=== PATIENT | male | born 1955 | race Caucasian/White ===

== ENCOUNTER 2021-09-19 08:45 | Inpatient (IN) | payer OTHER ==
[~2021-09-19] VITALS: Ht 190.5 cm; Wt 66.0 kg
[~2021-09-19 08:45] MED LIST: ACET500 PO; DICLOFENAC SOD100 G1 TOP; DOXA1; FINA5 PO; Hydroxychloroq200 MG PO; LEVFLO500 PO; NAPR500; PROACE100 PO; ZYRTEC10 M2 PO; [UNRECOGNIZED DRUG - OTHER] PO
[2021-09-19] MEDS ORDERED: SYSTANE GEL10 GM (09:20)
--- NOTE | 2021-09-19 09:54 | NUR ---
History, Chart, Medications and Allergies reviewed before start of procedure. Lungs clear T/O to Auscultation. Patient confirms NPO status and agrees with scheduled surgery. Pre-Op teaching done. Pt verbalizes understanding. [place] DOES HAVE INTELLECTUAL DISABILITIES, BUT DOESN'T COMMUNICATED HIS NEEDS. PT DENIES PAIN ONCE POSITIONED WELL IN BED.
--- NOTE | 2021-09-19 11:23 | NUR ---
09/19/21 1123 Yash Soria SMALL RAISED ROUND SKIN NOTED MID POSTERIOR THIGH WITH MINOR REDNESS SMALL RED CLOSED BLISTER NOTED ON POSTERIOR ACHILLES, NO SIGNS OF INFECTION.
--- NOTE | 2021-09-19 19:11 | NUR ---
SHIFT SUMMARY PT STATUS POST FOR L YARI HIP. FOAM DRESSING IN PLACE AND CDI. PT PRESENTS WITH DEVELOPMENTAL DELAY BUT IS ABLE TO MAKE HIS NEEDS KNOWN. DENIES PAIN AT THIS TIME. VSS. WILL REPORT TO ELISHA RN.
--- NOTE | 2021-09-20 04:05 | NUR ---
SHIFT SUMMARY A/OX2. POD1 L HIP NAILING, FOAM DRESSING C/D/I, POLAR PACK IN PLACE. TOLERATING PO INTAKE, VOIDING WELL. PT REPORTS NO PAIN AT THIS TIME. WILL REPORT TO ONCOMING RN.
[2021-09-20 04:47] LABS: BASOPHILS ABSOLUTE AUTO 0.01 K/mm3 (0.00-0.23); BASOPHILS PERCENT AUTO 0 % (0-2); EOSINOPHILS ABSOLUTE AUTO 0.01 K/mm3 (0.00-0.68); EOSINOPHILS PERCENT AUTO 0 % (0-6); Hematocrit 34.3 % (37.0-53.0); Hemoglobin 11.6 g/dL (13.5-17.5); IMMATURE GRAN ABSOLUTE AUTO 0.02 K/mm3 (0.00-0.10); IMMATURE GRAN PERCENT AUTO 0 % (0-1); LYMPHOCYTES ABSOLUTE AUTO 0.66 K/mm3 (0.84-5.20); LYMPHOCYTES PERCENT AUTO 9 % (21-46); MONOCYTES ABSOLUTE AUTO 0.82 K/mm3 (0.16-1.47); MONOCYTES PERCENT AUTO 11 % (4-13); Mean Corpuscular HGB 28.5 pg (26.0-34.0); Mean Corpuscular HGB Conc 33.8 g/dL (31.5-36.5); Mean Corpuscular Volume 84 fL (80-100); Mean Platelet Volume 9.2 fL (9.1-12.4); NEUTROPHILS PERCENT AUTO 80 % (41-73); Platelet Count 176 K/mm3 (150-400); RDW Coefficient Variation 15.9 % (11.7-14.2); RDW Standard Deviation 48.9 fL (35.1-46.3); Red Blood Cell Count 4.07 M/mm3 (4.30-5.90); White Blood Cell Count 7.62 K/mm3 (4.00-11.30)
[2021-09-20 05:02] LABS: Anion Gap 6 mmol/L (6-16); Blood Urea Nitrogen 23 mg/dL (8-24); Bun/Creatinine Ratio 26.9 (12.0-20.0); CO2, Blood 25 mmol/L (21-32); Calcium, Blood 8.3 mg/dL (8.5-10.1); Chloride, Blood 107 mmol/L (98-108); Creatinine, Blood 0.86 mg/dL (0.60-1.20); Glomerular Filtration Rate >60 (60-); Glucose, Blood 123 mg/dL (70-99); Potassium, Blood 4.4 mmol/L (3.5-5.5); Sodium, Blood 138 mmol/L (136-145)
--- NOTE | 2021-09-20 16:50 | NUR ---
SHIFT SUMMARY PT A&OX2, FOLLOWS DIRECTIONS, ABLE TO MAKE NEEDS KNOWN, PLEASANT & COOPERATIVE WITH CARE. POD1 L YARI HIP, FOAM DRESSING CDI, WBAT, TEDS/SCDS/POLAR LENY ON. DENIES PAIN; TYLENOL AND TORADOL GIVEN. DENIES N&V, ZAHRA PO. AMB SBA/FWW/GB, TO BED/CHAIR/BSC. VOIDING WELL, ATTENDS ON(LEAKAGE). BM TODAY. WILL REPORT TO ONCOMING NOC RN.
--- NOTE | 2021-09-21 06:19 | NUR ---
SHIFT SUMMARY NO ACUTE CHANGES OVERNIGHT. PT REPORTS PAIN UPON TRANSFER TO BSC TO BED. PAIN MANAGED WITH TYLENOL AND TORADOL. DEVELOPMENTAL DELAYED BUT ANSWERS QUESTIONS APPROPRIATELY. L HIP WITH AQUACEL DRESSING REMAIN CDI. PT DENIES NUMBNESS AND TINGLING SENSATION. VSS. TOLERATING PO INTAKE. USE URINAL WHEN VOIDING. VOIDING WITHOUT DIFFICULTY. PT HAD A SMEAR OF BM. CALL LIGHT WITHIN REACH. WILL PROVIDE REPORT TO ONCOMING NURSE.
--- NOTE | 2021-09-21 15:47 | NUR ---
SHIFT SUMMARY PT A&OX2, VSS, PLEASANT & COOPERATIVE WITH CARE, USES CALL LIGHT APPROPRIATELY, ABLE TO MAKE NEEDS KNOWN. PAIN MANAGED WITH TYLENOL AND TORADOL. ZAHRA PO. AMB SBA/FWW/GB TO BSC/CHAIR/BED, PT RESPONDS WELL TO CUES AND PATIENCE HE TRANSFERS AT HIS OWN PACE. VOIDING WELL USES BSC/URINAL. BM LARGE TODAY. WILL REPORT TO NEXT RN.
--- NOTE | 2021-09-22 03:46 | NUR ---
SHIFT SUMMARY NO ACUTE CHANGES OVERNIGHT. PT REPORTS L HIP PAIN AFTER TRANSFERING TO BS BUT DENIES PAIN AT REST. PAIN MANAGED WITH TYLENOL, TORADOL AND NORCO. ALERT AND ORIENTEDX3. HX DEV'T DELAY. APPROPRIATE AND COOPERATIVE WITH CARE. L HIP WITH AQUACEL DRESSING, CDI. SURGICAL SITE HAS SOME SWELLING. AMBULATES BS WITH 1SBA, FWW, AND GB. VSS. CALL LIGHT WITHIN REACH. WILL PROVIDE REPORT TO ONCOMING NURSE.
--- NOTE | 2021-09-22 14:29 | NUR ---
EXCORATION NOTICED SMALL AMOUNT EXCORIATION TO BUTTOCKS W/LAST BM.
--- NOTE | 2021-09-22 17:24 | NUR ---
SUMMARY NO ACUTE CHANGES T/O SHIFT. PT VOIDED OVER 1 LITER. HAD SEVERAL SOFT FORMED BMS. SLIGHT EXORIATION NOTED TO BUTTOCKS THIS AFTERNOON. ONE PERSON ASSIST W/FWW AND GAIT BELT. DEVELOPMENTAL DELAY. USES CALL LIGHT APPROPRIATELY. DENIED PAIN T/O DAY UNTIL THIS EVENING. STATES "JUST A LITTLE BIT, NOT BAD". MEDICATED PER ORDERS W/TYLENOL. CALL LIGHT IN REACH.
--- NOTE | 2021-09-22 19:04 | NUR ---
REPORT GIVEN TO ONCOMING SHIFT.
--- NOTE | 2021-09-23 04:37 | NUR ---
SHIFT SUMMARY PT POD3 L YARI ARTHROPLASTY, AQUACEL IN PLACE, C/D/I. VITALS STABLE. SWELLING AND REDDNESS TO AFFECTED AREA, OUTLINED REDDNESS. PT REPORTS PAIN AND WAS TREATED PER EMAR. UP TO BEDSIDE COMMODE AND USING URINAL. AWAITING APPROVAL FOR SNF. WILL REPORT TO ONCOMING RN.
--- NOTE | 2021-09-23 16:47 | NUR ---
REDNESS OF AROUND LEFT HIP INCISION HAS REDUCED AND IS WITHIN THE OUTLINE DRAWN BY THE PREVIOUS RN. NO CHANGE THE THE AMOUNT OF SWELLING PRESENT.
[2021-09-23 17:31] LABS: Influenza A, PCR NEGATIVE (NEGATIVE); Influenza B, PCR NEGATIVE (NEGATIVE); Resp Syncytial Virus, PCR NEGATIVE (NEGATIVE); SARS-Cov-2 (COVID-19) PCR, MMC NEGATIVE (NEGATIVE)
--- NOTE | 2021-09-23 18:00 | NUR ---
SHIFT SUMMARY PT IS POD#4 FROM L YARI HIP WITH DR. RODRIGUEZ. PT IS ALERT AND ORIENTED, HE FOLLOWS DIRECTIONS WELL. PT IS A 1 ASSIST WHEN OOB. PAIN MANAGED WITH PO PAIN MEDICATION. L HIP IS SWOLLEN AND REDNESS IS PRESENT, REDNESS HAS RECEDED BACK TO THE LINE DRAWN BY PREVIOUS RN. PT IS GETTING PO ABX. PLAN FOR DC TO SNF TOMORROW. VSS. WILL MONITOR UNTIL REPORT TO NOC RN.
--- NOTE | 2021-09-24 05:11 | NUR ---
SHIFT SUMMARY POD5 L HIP YARI ARTHROPLASTY, RED AND SWOLLEN, AQUACEL DRESSING C/D/I. REDDENED AREA OUTLINED, NO REDNESS OUTSIDE OF OUTLINED AREA. TAKING PRESCRIBED PO ANTIBIOTICS. VITAL SIGNS STABLE. PT REPORTS LITTLE PAIN AT THIS TIME. AMBULATES WITH FWW AND GB TO BSC. VOIDING AND PASSING STOOL. TOLERATING PO INTAKE. PLAN TO GO TO SNF TODAY, WILL REPORT TO ONCOMING RN.
[2021-09-24 08:31] LABS: Influenza A, PCR NEGATIVE (NEGATIVE); Influenza B, PCR NEGATIVE (NEGATIVE); Resp Syncytial Virus, PCR NEGATIVE (NEGATIVE); SARS-Cov-2 (COVID-19) PCR, MMC NEGATIVE (NEGATIVE)
--- NOTE | 2021-09-24 13:23 | NUR ---
DISCHARGE NOTE: PATIENT WAS TRANSPORTED TO [facility] AT 1130 TODAY WITH [facility]. IV WAS TAKEN OUT AND WAS WNL. PAIN IS MANAGED WITH PO PAIN MEDS. LEFT HIP HAS AQUACEL THAT IS C/D/I. DENIES NUMBNESS AND TINGLING. HE IS A SBA WITH FWW. HARD SCRIPTS ARE IN HIS FOLDER THAT DISCHARGE PLANNING PUT TOGETHER. PATIENT HAS PERSONAL ITEMS IN BAGS. MEDICATIONS ARE IN A GREEN BAG. PATIENT WAS WHEELCHAIRED OUT TO THE AMBULANCE. THIS NURSE GAVE REPORT TO NURSE SHAFFER FROM [facility] AT 1130 WHEN THE PATIENT LEFT.
== END 2021-09-24 11:36 | DRG 522 ==
LOC: SURS 08:45 → PRE IP 10:00 → SURS 13:43
PROVIDERS: ADMIT Orthopaedic Surgery
PROC: 3E02340 Introduction of Influenza Vaccine into Muscle, Percutaneous Approach (ICD-10-PCS; 2021-09-19)
PROC: 0SRS0JZ Replacement of Left Hip Joint, Femoral Surface with Synthetic Substitute, Open Approach (ICD-10-PCS; principal; 2021-09-19 10:00)
DX: S72.032A Displaced midcervical fracture of left femur, initial encounter for closed fracture (principal); W18.30XA Fall on same level, unspecified, initial encounter; Z23 Encounter for immunization; Z20.822 Contact with and (suspected) exposure to COVID-19; Z79.899 Other long term (current) drug therapy; Z98.890 Other specified postprocedural states; Z88.5 Allergy status to narcotic agent; Z88.0 Allergy status to penicillin; Z88.8 Allergy status to other drugs, medicaments and biological substances
CPT/HCPCS: 0241U; 36415; 72170; 80048; 83735; 85025; 88305; 88311; 97110; 97116; 97162; 97166; 97530; 97535; A9270; C1776; J0171; J0735; J1100; J1885; J2405; J2704; J2795; J3010; J3370; J7050; J7120

== ENCOUNTER 2021-10-08 12:20 | Inpatient (IN) | payer OTHER ==
[~2021-10-08] VITALS: Ht 190.5 cm; Wt 69.7 kg
[~2021-10-08 12:20] MED LIST changes: +SYSTANE GEL10 GM
--- NOTE | 2021-10-08 13:08 | NUR ---
History, Chart, Medications and Allergies reviewed before start of procedure. Pre-Op teaching done. Pt verbalizes understanding.
[2021-10-08 19:45] LABS: BODY FLUID RBC 0.163 M/mm3 (0-0); RBC Count, Synovial Fluid 163000 /mm3 (0-0); WBC Count, Synovial Fluid 2382 /mm3 (0-180)
[2021-10-08 21:15] LABS: Lymphs, Synovial Fluid 20 % (0-15); Monocytes/Macrophages, Synovia 10 % (0-65); Neutrophils, Synovial Fluid 70 % (0-24)
[2021-10-08 21:16] LABS: Appearance, Synovial Fluid Turbid (Clear); Color, Synovial Fluid Red (None-P Yel)
[2021-10-09 05:13] LABS: BASOPHILS ABSOLUTE AUTO 0.01 K/mm3 (0.00-0.23); BASOPHILS PERCENT AUTO 0 % (0-2); EOSINOPHILS PERCENT AUTO 0 % (0-6); Hematocrit 34.9 % (37.0-53.0); Hemoglobin 11.6 g/dL (13.5-17.5); IMMATURE GRAN ABSOLUTE AUTO 0.01 K/mm3 (0.00-0.10); IMMATURE GRAN PERCENT AUTO 0 % (0-1); LYMPHOCYTES ABSOLUTE AUTO 0.66 K/mm3 (0.84-5.20); LYMPHOCYTES PERCENT AUTO 21 % (21-46); MONOCYTES ABSOLUTE AUTO 0.16 K/mm3 (0.16-1.47); MONOCYTES PERCENT AUTO 5 % (4-13); Mean Corpuscular HGB 28.2 pg (26.0-34.0); Mean Corpuscular HGB Conc 33.2 g/dL (31.5-36.5); Mean Corpuscular Volume 85 fL (80-100); Mean Platelet Volume 8.8 fL (9.1-12.4); NEUTROPHILS ABSOLUTE AUTO 2.38 K/mm3 (1.96-9.15); NEUTROPHILS PERCENT AUTO 74 % (41-73); Platelet Count 258 K/mm3 (150-400); RDW Coefficient Variation 15.5 % (11.7-14.2); RDW Standard Deviation 47.8 fL (35.1-46.3); Red Blood Cell Count 4.12 M/mm3 (4.30-5.90); White Blood Cell Count 3.22 K/mm3 (4.00-11.30)
[2021-10-09 05:32] LABS: Anion Gap 7 mmol/L (6-16); Blood Urea Nitrogen 12 mg/dL (8-24); Bun/Creatinine Ratio 17.8 (12.0-20.0); CO2, Blood 25 mmol/L (21-32); Calcium, Blood 8.7 mg/dL (8.5-10.1); Chloride, Blood 104 mmol/L (98-108); Creatinine, Blood 0.68 mg/dL (0.60-1.20); Glomerular Filtration Rate >60 (60-); Glucose, Blood 143 mg/dL (70-99); Magnesium, Blood 1.7 mg/dL (1.6-2.4); Potassium, Blood 4.2 mmol/L (3.5-5.5); Sodium, Blood 136 mmol/L (136-145)
[2021-10-09 05:58] LABS: C-REACTIVE PROTEIN, EXT RANGE >19.000 mg/dL (0.000-0.300)
--- NOTE | 2021-10-09 06:38 | NUR ---
VSS. L HIP DSG CDI. HEMOVAC DRAIN IN PLACE. MINIMAL SANGUINOUS OUTPUT. +DEVELOPMENTAL DELAY. +BED ALARM. PT CALLS APPROPRIATELY, OCCASIONALLY CALLS OUT FOR HELP. PT USES BEDSIDE URINAL, OCCASIONALLY INC WHILE SLEEPING. SISTER LYNN: POINT OF CONTACT. [facility]: [facility]. NO ISSUES THROUGHOUT SHIFT. WILL CONTINUE TO ROXY
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
--- NOTE | 2021-10-09 18:33 | NUR ---
PATIENT CURRENTLY LYING IN BED TALKING TO HIMSELF. NO SIGNS OR SYMPTOMS ACUTE DISTRESS NOTED AT THIS TIME. CALL LIGHT AND WATER IN EASY REACH. PATIENT IS ABLE TO MAKE NEEDS KNOWN. PATIENT IS VERY HARD TO UNDERSTAND. PATIENT WORKED WITH PT TODAY AND DID WELL. HE WALKED TO THE [place]OSK[place] AND BACK. DR RODRIGUEZ CHANGED PATIENTS DRESSING THIS AM, DRAIN WILL REMAIN UNTIL TOMORROW MORNING PER DR RODRIGUEZ. NO COMPLAINTS VOICED AT THIS TIME. WILL MONITOR.
--- NOTE | 2021-10-10 06:05 | NUR ---
VSS. +VOIDING. OCCASIONALLY INC. L HIP DSG CDI. HEMOVAC DRAIN EMPTIED. 30ML OUTPUT. PRN PAIN MEDS GIVEN W/ ADEQUATE RELIEF-SEE EMAR. BED ALARM ON PT. NO ISSUES THROUGHOUT SHIFT. WILL CONTINUE TO ROXY
[2021-10-10 06:34] LABS: Vancomycin, Trough 11.4 ug/mL (5.0-10.0)
--- NOTE | 2021-10-11 06:34 | NUR ---
SHIFT SUMMARY: PT A&O X4. NO ACUTE EVENTS EVENT OVER NIGHT. VSS. PAIN TOLERABLE WITHOUT PAIN MEDICATION. DRESSING TO LEFT HIP HIP C/D/I WITH PRESSURE TAPE. ORDER FOR DAILY DRESSING CHANGES. PICC IN PLACE TO JASON AND FUNCTIONING WELL. IV ABX INFUSING PER EMAR. AWAITING DISCHARGE BACK TO [facility] FOR [facility] ABX THERAPY.
--- NOTE | 2021-10-11 11:12 | NUR ---
DR ROBLERO IN TO SEE PT. RN CLEANED INCISION AND PLACED NEW DRESSING PER ORDERS.
--- NOTE | 2021-10-11 17:20 | NUR ---
SUMMARY NO ACUTE CHANGES T/O SHIFT. REC'D ABX PER ORDERS. CHANGED DRESSING TO L HIP PER ORDERS AFTER DR ROBLERO EXAMINED. PT HAS DENIED PAIN. EATING AND VOIDING. ONE PERSON SBA W/GAIT BELT AND FWW. USES CALL LIGHT FREQUENTLY. DEVELOPMENTALLY DELAYED BUT A&O AND APPROPRIATE. CALL LIGHT IN REACH.
--- NOTE | 2021-10-12 04:57 | NUR ---
PT IS ALERT AND ORIENTED X4 WITH DD'S AND MILD CONFUSION, ONE ASSIST FOR TRANNSFERS TO [facility] WITH FWW AND GB. PT L HIP PAIN AND HEADACHE TREATED PER EMAR. PT HAS BEEN AWAKE FOR MOST OF THE NIGHT, DRINKING FLUIDS WITH TRIPS TO [facility] Q20-30 MIN. PT ENCOURAGED TO USE URINAL. PT MAKES NO OTHER COMPLAITS AND NO ACUTE ISSUES TO REPORT. BED IN LOW POSITION AND CALL LIGHT WITHIN REACH. STAFF WILL CONTINUE TO MONITOR.
[2021-10-13 05:55] LABS: Creatinine, Blood 0.75 mg/dL (0.60-1.20); Vancomycin, Trough 10.9 ug/mL (5.0-10.0)
[2021-10-13 07:07] LABS: BASOPHILS ABSOLUTE AUTO 0.04 K/mm3 (0.00-0.23); BASOPHILS PERCENT AUTO 1 % (0-2); EOSINOPHILS ABSOLUTE AUTO 0.21 K/mm3 (0.00-0.68); EOSINOPHILS PERCENT AUTO 5 % (0-6); Hematocrit 37.6 % (37.0-53.0); Hemoglobin 12.7 g/dL (13.5-17.5); IMMATURE GRAN ABSOLUTE AUTO 0.01 K/mm3 (0.00-0.10); IMMATURE GRAN PERCENT AUTO 0 % (0-1); LYMPHOCYTES ABSOLUTE AUTO 0.73 K/mm3 (0.84-5.20); LYMPHOCYTES PERCENT AUTO 17 % (21-46); MONOCYTES ABSOLUTE AUTO 0.48 K/mm3 (0.16-1.47); MONOCYTES PERCENT AUTO 12 % (4-13); Mean Corpuscular HGB 28.2 pg (26.0-34.0); Mean Corpuscular HGB Conc 33.8 g/dL (31.5-36.5); Mean Corpuscular Volume 84 fL (80-100); Mean Platelet Volume 9.3 fL (9.1-12.4); NEUTROPHILS ABSOLUTE AUTO 2.72 K/mm3 (1.96-9.15); NEUTROPHILS PERCENT AUTO 65 % (41-73); Platelet Count 181 K/mm3 (150-400); RDW Coefficient Variation 15.9 % (11.7-14.2); RDW Standard Deviation 48.5 fL (35.1-46.3); White Blood Cell Count 4.19 K/mm3 (4.00-11.30)
--- NOTE | 2021-10-13 07:22 | NUR ---
SUMMARY PT WITH NO C/O THIS AM. TEMP LOW GRADE X1.ADDITIONAL LABS WERE ORDERED.
[2021-10-13 13:28] LABS: Influenza A, PCR NEGATIVE (NEGATIVE); Influenza B, PCR NEGATIVE (NEGATIVE); Resp Syncytial Virus, PCR NEGATIVE (NEGATIVE); SARS-Cov-2 (COVID-19) PCR, MMC NEGATIVE (NEGATIVE)
== END 2021-10-13 17:52 | DRG 502 ==
LOC: ORSCMMR 12:20 → ORD 12:20 → SURS 17:40
PROVIDERS: Pharmacist; ADMIT Orthopaedic Surgery
PROC: 0MBM0ZZ Excision of Left Hip Bursa and Ligament, Open Approach (ICD-10-PCS; principal; 2021-10-08 17:30)
DX: M70.72 Other bursitis of hip, left hip (principal); Z20.822 Contact with and (suspected) exposure to COVID-19; Z98.890 Other specified postprocedural states; Z88.0 Allergy status to penicillin; Z88.2 Allergy status to sulfonamides; Z88.8 Allergy status to other drugs, medicaments and biological substances; Z96.642 Presence of left artificial hip joint; Z79.899 Other long term (current) drug therapy
CPT/HCPCS: 0241U; 36415; 80048; 80202; 82565; 83735; 85025; 85651; 86140; 87070; 87071; 87075; 87077; 87186; 87205; 89051; 97110; 97116; 97116-CQ; 97162; 97530; 97530-CQ; A9270; J0171; J0735; J1100; J1885; J2405; J2704; J2795; J3010; J3260; J3370; J7050; J7120

== ENCOUNTER → 2022-04-22 | Outpatient (CLI) | payer OTHER ==
[2022-04-23 13:03] LABS: Stool Occult Bld Immuno 1 Negative (NEGATIVE)
== END | disposition home or self-care (01) ==
LOC: LAB SHORT 14:00
PROVIDERS: Registered Nurse
DX: Z12.11 Encounter for screening for malignant neoplasm of colon (principal); Z12.12 Encounter for screening for malignant neoplasm of rectum
CPT/HCPCS: G0328

== ENCOUNTER → 2023-01-19 | Outpatient (CLI) | payer OTHER | END | disposition home or self-care (01) | LOC: LAB SHORT 15:00 → LAB 15:00 | DX: L03.012 Cellulitis of left finger (principal) | CPT/HCPCS: 87070; 87075; 87077; 87147; 87186; 87205 ==

== ENCOUNTER → 2023-04-08 | Outpatient (CLI) | payer OTHER ==
[2023-04-08 13:58] LABS: BASOPHILS ABSOLUTE AUTO 0.03 K/mm3 (0.00-0.23); BASOPHILS PERCENT AUTO 1 % (0-2); EOSINOPHILS ABSOLUTE AUTO 0.08 K/mm3 (0.00-0.68); EOSINOPHILS PERCENT AUTO 2 % (0-6); Hematocrit 44.1 % (37.0-53.0); Hemoglobin 14.7 g/dL (13.5-17.5); IMMATURE GRAN PERCENT AUTO 0 % (0-1); LYMPHOCYTES ABSOLUTE AUTO 0.58 K/mm3 (0.84-5.20); LYMPHOCYTES PERCENT AUTO 17 % (21-46); MONOCYTES ABSOLUTE AUTO 0.38 K/mm3 (0.16-1.47); MONOCYTES PERCENT AUTO 11 % (4-13); Mean Corpuscular HGB 28.5 pg (26.0-34.0); Mean Corpuscular HGB Conc 33.3 g/dL (31.5-36.5); Mean Corpuscular Volume 86 fL (80-100); Mean Platelet Volume 10.6 fL (9.1-12.4); NEUTROPHILS PERCENT AUTO 69 % (41-73); Platelet Count 141 K/mm3 (150-400); RDW Coefficient Variation 13.2 % (11.7-14.2); RDW Standard Deviation 41.2 fL (35.1-46.3); Red Blood Cell Count 5.16 M/mm3 (4.30-5.90); White Blood Cell Count 3.47 K/mm3 (4.00-11.30)
[2023-04-08 14:19] LABS: Albumin, Blood 3.4 g/dL (3.4-5.0); Bilirubin, Total 0.7 mg/dL (0.1-1.0); Bun/Creatinine Ratio 20.7 (12.0-20.0); Creatinine, Blood 0.87 mg/dL (0.60-1.20); Globulin, Blood 3.3 g/dL (2.2-4.0); Potassium, Blood 4.2 mmol/L (3.5-5.5); Total Protein, Blood 6.7 g/dL (6.4-8.2); Uric Acid, Blood 6.3 mg/dL (3.5-7.2)
== END | disposition home or self-care (01) ==
LOC: LAB SHORT 08:45 → LAB 08:45
PROVIDERS: Internal Medicine Rheumatology
DX: M06.9 Rheumatoid arthritis, unspecified (principal)
CPT/HCPCS: 80053; 84550; 85025; 85651; 86200

== ENCOUNTER → 2023-06-14 | Outpatient (CLI) | payer OTHER | LOC: LAB SHORT 17:38 → LAB 17:38 | DX: L02.512 Cutaneous abscess of left hand (principal) | CPT/HCPCS: 87070; 87075; 87077; 87147; 87186; 87205 ==

== ENCOUNTER 2024-08-01 09:21 | Emergency (ER) | payer OTHER ==
[~2024-08-01] VITALS: Ht 175.3 cm; Wt 71.2 kg
[2024-08-01 10:23] LABS: BASOPHILS ABSOLUTE AUTO 0.03 K/mm3 (0.00-0.23); BASOPHILS PERCENT AUTO 1 % (0-2); EOSINOPHILS ABSOLUTE AUTO 0.08 K/mm3 (0.00-0.68); EOSINOPHILS PERCENT AUTO 2 % (0-6); Hematocrit 43.8 % (37.0-53.0); Hemoglobin 14.9 g/dL (13.5-17.5); IMMATURE GRAN ABSOLUTE AUTO 0.01 K/mm3 (0.00-0.10); IMMATURE GRAN PERCENT AUTO 0 % (0-1); LYMPHOCYTES ABSOLUTE AUTO 0.61 K/mm3 (0.84-5.20); LYMPHOCYTES PERCENT AUTO 14 % (21-46); MONOCYTES ABSOLUTE AUTO 0.52 K/mm3 (0.16-1.47); MONOCYTES PERCENT AUTO 12 % (4-13); Mean Corpuscular HGB 28.1 pg (26.0-34.0); Mean Corpuscular Volume 83 fL (80-100); Mean Platelet Volume 9.3 fL (9.1-12.4); NEUTROPHILS ABSOLUTE AUTO 3.21 K/mm3 (1.96-9.15); NEUTROPHILS PERCENT AUTO 72 % (41-73); Platelet Count 204 K/mm3 (150-400); RDW Coefficient Variation 14.1 % (11.7-14.2); RDW Standard Deviation 42.5 fL (35.1-46.3); Red Blood Cell Count 5.31 M/mm3 (4.30-5.90); White Blood Cell Count 4.46 K/mm3 (4.00-11.30)
[2024-08-01 10:45] LABS: Albumin, Blood 3.5 g/dL (3.4-5.0); Albumin/Globulin Ratio 0.9 (0.8-1.8); Bilirubin, Total 0.4 mg/dL (0.1-1.0); Bun/Creatinine Ratio 15.5 (12.0-20.0); Calcium, Blood 8.5 mg/dL (8.5-10.1); Creatinine, Blood 0.84 mg/dL (0.60-1.20); Globulin, Blood 3.9 g/dL (2.2-4.0); Potassium, Blood 4.3 mmol/L (3.5-5.5); Total Protein, Blood 7.4 g/dL (6.4-8.2)
[2024-08-01 11:41] VITALS: BP 116/68
== END 2024-08-01 11:41 | disposition home or self-care (01) ==
LOC: ER 09:21
PROVIDERS: Physician Assistant
DX: R07.89 Other chest pain (principal); Z79.899 Other long term (current) drug therapy; Z88.0 Allergy status to penicillin; Z88.2 Allergy status to sulfonamides; Z88.8 Allergy status to other drugs, medicaments and biological substances
CPT/HCPCS: 71046; 80053; 83690; 84484; 85025; 93005; 93010; 99285-25